=== PATIENT | female | born 1955 | race Hispanic/Latino ===

== ENCOUNTER 2024-01-04 11:10 | Emergency (ER) | payer OTHER ==
[2024-01-04] MEDS ORDERED: HYDROMORPHONE HCL 0.5 MG/0.5 ML INJ ONE (11:33)
[2024-01-04] MEDS ORDERED: MECLIZINE HCL 12.5 MG TAB ONE (11:33)
[2024-01-04] MEDS ORDERED: ONDANSETRON 4 MG/2 ML VIAL ONE (11:33)
[2024-01-04 11:56] LABS: Absolute Eosinophils 0.1 K/uL (0-0.5); Absolute Lymphocytes (CBC) 2.1 K/uL (0.7-4.9); Absolute Monocytes 0.6 K/uL (0.1-1.3); Absolute Neutrophil 4.3 K/uL (1.8-8.0); Basophils % 0.5 % (0-1.3); Eosinophils % 1.7 % (0-4.4); Hematocrit 40.6 % (36.0-45.0); Hemoglobin 13.4 g/dL (12.0-15.0); Lymphocytes % 29.7 % (15.3-44.8); MCH 28.9 pg (27.0-35.0); MCV 87.8 fL (80-100); Monocytes % 8.4 % (3.3-12.3); Neutrophils % 59.7 % (41.7-73.7); Platelets 239 thou/uL (152-406); RBC Red Blood Cell Count 4.63 M/uL (3.86-4.86); Red Cell Distribution Width 13.9 % (12.1-15.2)
[2024-01-04 12:02] LABS: PT Prothrombin Time 10.9 SECONDS (9.5-12.5); Protime INR 0.99
--- NOTE | 2024-01-04 12:05 | RAD REPORT ---
EXAM DESCRIPTION: CT - Head Brain Wo Cont - 01/04/2024 11:47 am CLINICAL HISTORY: Headache;Dizziness COMPARISON: No comparisons TECHNIQUE: Noncontrast head CT images were obtained without IV contrast. Multiplanar reformats were generated and reviewed. All CT scans are performed using dose optimization technique as appropriate and may include automated exposure control or mA/KV adjustment according to patient size. FINDINGS: No intracranial hemorrhage, mass, or edema. Midline structures are unremarkable. Normal ventricular caliber for age. Villar-white matter differentiation is preserved, without evidence of acute infarct. No abnormal extra- axial fluid collections. Mastoid air cells and visualized portions of the paranasal sinuses are clear. No acute bony findings. IMPRESSION: No evidence of an acute intracranial process.
[2024-01-04 12:19] LABS: ALT/SGPT 25 U/L (13-56); AST/SGOT 15 U/L (15-37); Albumin 3.6 g/dL (3.4-5.0); Albumin/Globulin Ratio 1.3 (1.1-1.8); Alkaline Phosphatase 117 U/L (45-117); Anion Gap 2.5 mEq/L (5.0-15.0); BUN Blood Urea Nitrogen 22 mg/dL (7-18); Bicarbonate 32 mEq/L (21-32); Bilirubin Direct < 0.1 mg/dL (0-0.2); Bilirubin Indirect, Calculated ND mg/dL (0.2-0.8); Bilirubin Total 0.2 mg/dL (0.2-1.0); Globulin 2.7 g/dL (2.3-3.5); Glomerular Filtration Rate 95 ml/min (=/>90); Glucose Level 85 mg/dL (74-106); Magnesium 2.4 mg/dL (1.6-2.4); Potassium 3.5 mEq/L (3.5-5.1); Protein, Total 6.3 g/dL (6.4-8.2); Sodium Level 141 mEq/L (136-145); Troponin High Sensitivity 3.4 pg/mL (<58.9)
--- NOTE | 2024-01-04 15:16 | RAD REPORT ---
EXAM DESCRIPTION: MRI - Brain Wo Cont - 01/04/2024 3:00 pm CLINICAL HISTORY: SYNCOPE Headache, drowsiness COMPARISON: Head Brain Wo Cont dated 01/04/2024 TECHNIQUE: Multi-sequence, multiplanar MR imaging of the brain was performed without contrast. FINDINGS: No intracranial hemorrhage, hydrocephalus or extra-axial fluid collections.Mild brain atro phy is noted. Several small T2/FLAIR hyperintensities are seen in the white matter in the periventric ular and left frontal lobe region, nonspecific. These are favored to represent sequela of chronic yolis rovascular ischemic changes. No edema or shift of midline structures. No findings to suspect brain ma ss. DWI is negative for acute CVA. Midline structures are normally formed. Mastoid air cells and paranasal sinuses are clear. IMPRESSION: Negative for acute CVA or other acute intracranial process. Small T2/FLAIR hyperintensities in the periventricular region and left frontal lobe are nonspecific. This may be related to chronic microvascular ischemia or underlying demyelinating condition. MRI brai n followup an 6 months would be suggested to monitor for progression.
--- NOTE | 2024-01-04 15:39 | RAD REPORT ---
EXAM DESCRIPTION: MRI - MRA Head Wo Cont - 01/04/2024 3:32 pm CLINICAL HISTORY: cva CVA COMPARISON: Brain Wo Cont dated 01/04/2024 FINDINGS: 3D noncontrast [id number] MR angiography of the [place] was performed. No evidence of large vessel occlusion. No aneurysm, flow-limiting stenosis or vascular malformation i s seen. Forward flow seen in codominant vertebral arteries. The visualized dural venous sinuses appear patent. IMPRESSION: No significant flow abnormality of the [place] is identified.
--- NOTE | 2024-01-04 15:41 | ER ---
Nurse's Notes [facility] Name: Lucila Valles Age: 68 yrs Sex: Female : 1955 Arrival Date: 01/04/2024 Time: 11:10 Bed 7 Private MD: Diagnosis: Dizziness, vertigo Presentation: 01/03 11:16 Chief complaint: Patient states: Generalized weakness, dizziness since Tuesday. Has nj1 taken meclizine, as well as antiemetics with no significant relief. Worse with movement. 11:16 Coronavirus screen: Vaccine status: Patient reports receiving the 2nd dose of the covid nj1 vaccine. Ebola Screen: Patient denies travel to an Ebola-affected area in the 21 days before illness onset. Initial Sepsis Screen: Does the patient meet any 2 criteria? No. Patient's initial sepsis screen is negative. Does the patient have a suspected source of infection? No. Patient's initial sepsis screen is negative. Risk Assessment: Do you want to hurt yourself or someone else? Patient reports no desire to harm self or others. Onset of symptoms was December 31, 2023. 11:16 Method Of Arrival: Wheelchair nj1 11:16 Acuity: BOOKER 3 nj1 Historical: - Allergies: 11:41 Burten; nj1 - PMHx: 11:36 Fibromyalgia; Sleep apnea; Depressive disorder; Hypercholesterolemia; Arthritis; nj1 - Immunization history:: Client reports receiving the 2nd dose of the Covid vaccine. - Infectious Disease History:: Denies. - Social history:: Smoking status: Patient/guardian denies using tobacco, but has a distant history of tobacco abuse. Screenin:45 [facility] ED Fall Risk Assessment (Adult) History of falling in the last 3 months, kc6 including since admission No falls in past 3 months (0 pts) Confusion or Disorientation No (0 pts) Intoxicated or Sedated No (0 pts) Impaired Gait No (0 pts) Mobility Assist Device Used No (0 pt) Altered Elimination No (0 pt) Score/Fall Risk Level 0 - 2 = Low Risk. Abuse screen: Denies threats or abuse. Denies injuries from another. Nutritional screening: No deficits noted. Tuberculosis screening: No symptoms or risk factors identified. Assessment: 11:40 General: Appears in no apparent distress. Behavior is calm, cooperative, appropriate ko1 for age. Pain: Denies pain. Neuro: Level of Consciousness is awake, alert, obeys commands, Oriented to person, place, time, situation, Reports dizziness, a syncopal episode. Cardiovascular: Rhythm is sinus rhythm. Respiratory: No deficits noted. GI: Reports nausea, vomiting. : No deficits noted. EENT: No deficits noted. Derm: No deficits noted. Musculoskeletal: No deficits noted. 12:40 Reassessment: Patient appears in no apparent distress at this time. No changes from [facility] previously documented assessment. Patient and/or family updated on plan of care and expected duration. Pain level reassessed. Patient is alert, oriented x 3, equal unlabored respirations, skin warm/dry/pink. 13:40 Reassessment: Patient appears in no apparent distress at this time. No changes from kc6 previously documented assessment. Patient and/or family updated on plan of care and expected duration. Pain level reassessed. Patient is alert, oriented x 3, equal unlabored respirations, skin warm/dry/pink. 14:40 Reassessment: Patient appears in no apparent distress at this time. No changes from kc previously documented assessment. Patient and/or family updated on plan of care and expected duration. Pain level reassessed. Patient is alert, oriented x 3, equal unlabored respirations, skin warm/dry/pink. 15:32 Reassessment: Patient appears in no apparent distress at this time. No changes from kc6 previously documented assessment. Patient and/or family updated on plan of care and expected duration. Pain level reassessed. Patient is alert, oriented x 3, equal unlabored respirations, skin warm/dry/pink. Vital Signs: 11:16 BP 135 / 87; Pulse 74; Resp 16; Temp 98.7(O); Pulse Ox 100% on R/A; Weight 70 kg; nj1 Height 5 ft. 2 in. ; Pain 7/10; 11:40 BP 129 / 78; Pulse 72; Resp 14; Pulse Ox 98% ; ko1 13:11 BP 144 / 91; Pulse 67; Resp 16 S; Pulse Ox 97% on R/A; kc6 14:35 BP 116 / 68; Pulse 84; Resp 16; Pulse Ox 99% ; ko1 11:16 Body Mass Index 28.04 (70.00 kg, 158 cm) [facility] 11:16 Pain Scale: Adult nj1 ED Course: 11:13 Patient arrived in ED. mg5 11:16 Tyler Davis MD is Attending Physician. sp3 11:32 Arti Ornelas, RN is Primary Nurse. ko1 11:36 Triage completed. nj1 11:37 Arm band placed on. nj1 11:40 Provided Education on: call light, meds, labs, tests. ko1 11:40 No provider procedures requiring assistance completed. Initial lab(s) drawn, by ED ko1 staff, sent to lab. EKG done, by ED staff, reviewed by Tyler Davis MD. 11:45 Patient has correct armband on for positive identification. Bed in low position. Call kc6 light in reach. Side rails up X2. Client placed on continuous cardiac and pulse oximetry monitoring. NIBP monitoring applied. monitor car operator on. Door closed. Noise minimized. Visitors limited. Lights dimmed. Pillow given. PO fluids given. 11:45 Inserted saline lock: 20 gauge in right antecubital area, using aseptic technique. kc6 Blood collected. 11:47 CT Head Brain wo Cont In Process Unspecified. EDMS 15:02 Brain Wo Cont In Process Unspecified. EDMS 15:34 MRA Head Wo Cont In Process Unspecified. EDMS 15:40 Nikki Dale MD is Referral Physician. sp3 15:43 IV discontinued, intact, bleeding controlled, No redness/swelling at site. Pressure ko1 dressing applied. Administered Medications: 11:45 Drug: HYDROmorphone IVP 0.5 mg IVP once Route: IVP; Site: right antecubital; kc6 12:36 Follow up: Response: No adverse reaction; Pain is decreased; RASS: Alert and Calm (0) kc6 11:45 Drug: Ondansetron IVP 4 mg IVP once; over 2 minutes Route: IVP; Site: right antecubital;kc6 12:36 Follow up: Response: No adverse reaction; Nausea is decreased kc6 11:45 Drug: Meclizine PO 25 mg PO once Route: PO; kc6 12:36 Follow up: Response: No adverse reaction kc6 Medication: 11:40 VIS not applicable for this client. ko1 Outcome: 15:41 Discharge ordered by . sp3 15:43 Discharged to home ambulatory, ko1 15:43 Condition: stable 15:43 Discharge instructions given to patient, family, Instructed on discharge instructions, follow up and referral plans. Demonstrated understanding of instructions, follow-up care, medications, 15:48 Patient left the ED. ko1 Signatures: Dispatcher [employer] EDMS Tyler Davis MD MD sp3 Mima Treadwell, RN RN kc6 Arti Ornelas RN RN ko1 Nydia Kent RN RN nj1 Marlena Montenegro 5
--- NOTE | 2024-01-04 15:42 | EDPHYS ---
Physician Documentation [facility] Name: Lucila Valles Age: 68 yrs Sex: Female : 1955 Arrival Date: 01/04/2024 Time: 11:10 Bed 7 Private MD: ED Physician Tyler Davis HPI: 01/03 12:08 This 68 yrs old Female presents to ER via Wheelchair with complaints of sp3 Syncope, Weakness, Vomiting, Dizziness. 12:08 68-year-old female with a history of fibromyalgia, depression, hyperlipidemia, sp3 arthritis presents to the ED with chief complaint vertigo, headache and nausea/vomiting. Patient was being treated by family member Dr. Hernandez cardiology attempted treatment with Walcott-Hallpike maneuvers and p.o. meclizine. This has not been helping significantly and therefore she presents to the ED for further investigation. No imaging or blood work has been performed. Patient denies any trauma, chest pain, shortness of breath, back pain, diarrhea, syncope, near syncope, rash, fever, URI symptoms, known sick contacts, or any other signs or symptoms on ROS at this time. Dizziness is described as room spinning and vertiginous as opposed to syncope or near syncope.. Historical: - Allergies: 11:41 Burten; nj1 - PMHx: 11:36 Fibromyalgia; Sleep apnea; Depressive disorder; Hypercholesterolemia; Arthritis; nj1 - Immunization history:: Client reports receiving the 2nd dose of the Covid vaccine. - Infectious Disease History:: Denies. - Social history:: Smoking status: Patient/guardian denies using tobacco, but has a distant history of tobacco abuse. ROS: 12:09 Constitutional: Negative for fever, chills, and weight loss, Eyes: Negative for injury, sp3 pain, redness, and discharge, ENT: Negative for injury, pain, and discharge, Neck: Negative for injury, pain, and swelling, Cardiovascular: Negative for chest pain, palpitations, and edema, Respiratory: Negative for shortness of breath, cough, wheezing, and pleuritic chest pain, Abdomen/GI: Negative for abdominal pain, nausea, vomiting, diarrhea, and constipation, Back: Negative for injury and pain, MS/Extremity: Negative for injury and deformity, Skin: Negative for injury, rash, and discoloration, Allergy/Immunology: Negative for hives, rash, and allergies, Endocrine: Negative for neck swelling, polydipsia, polyuria, polyphagia, and marked weight changes, Hematologic/Lymphatic: Negative for swollen nodes, abnormal bleeding, and unusual bruising, Exam: 12:10 Constitutional: This is a well developed, well nourished patient who is awake, alert, sp3 and in no acute distress. Head/Face: Normocephalic, atraumatic. Eyes: Pupils equal round and reactive to light, extra-ocular motions intact. Lids and lashes normal. Conjunctiva and sclera are non-icteric and not injected. Cornea within normal limits. Periorbital areas with no swelling, redness, or edema. ENT: Nares patent. No nasal discharge, no septal abnormalities noted. External auditory canals are clear. Oropharynx with no redness, swelling, or masses, exudates, or evidence of obstruction, uvula midline. Mucous membranes moist. Neck: Trachea midline, no thyromegaly or masses palpated, and no cervical lymphadenopathy. Supple, full range of motion without nuchal rigidity, or vertebral point tenderness. No Meningismus. Chest/axilla: Normal chest wall appearance and motion. Nontender with no deformity. No lesions are appreciated. Cardiovascular: Regular rate and rhythm with a normal S1 and S2. No gallops, murmurs, or rubs. Normal PMI, no JVD. No pulse deficits. Respiratory: Lungs have equal breath sounds bilaterally, clear to auscultation and percussion. No rales, rhonchi or wheezes noted. No increased work of breathing, no retractions or nasal flaring. Abdomen/GI: Soft, non-tender, with normal bowel sounds. No distension or tympany. No guarding or rebound. No evidence of tenderness throughout. Back: No spinal tenderness. No costovertebral tenderness. Full range of motion. Skin: Warm, dry with normal turgor. Normal color with no rashes, no lesions, and no evidence of cellulitis. MS/ Extremity: Pulses equal, no cyanosis. Neurovascular intact. Full, normal range of motion. Neuro: Awake and alert, GCS 15, oriented to person, place, time, and situation. Cranial nerves II-XII grossly intact. Motor strength 5/5 in all extremities. Sensory grossly intact. Cerebellar exam normal. Normal gait. Psych: Awake, alert, with orientation to person, place and time. Behavior, mood, and affect are within normal limits. 12:10 Neuro: Horizontal nystagmus noted. No vertical nystagmus or other neurological findings., Vital Signs: 11:16 BP 135 / 87; Pulse 74; Resp 16; Temp 98.7(O); Pulse Ox 100% on R/A; Weight 70 kg; nj1 Height 5 ft. 2 in. ; Pain 7/10; 11:40 BP 129 / 78; Pulse 72; Resp 14; Pulse Ox 98% ; ko1 13:11 BP 144 / 91; Pulse 67; Resp 16 S; Pulse Ox 97% on R/A; kc6 14:35 BP 116 / 68; Pulse 84; Resp 16; Pulse Ox 99% ; ko1 11:16 Body Mass Index 28.04 (70.00 kg, 158 cm) nj1 11:16 Pain Scale: Adult nj1 MDM: 11:30 Patient medically screened. sp3 12:10 Data reviewed: vital signs, nurses notes, lab test result(s), EKG, radiologic studies, sp3 I have discussed the patient's presentation/case with the attending Emergency Department Physician;. ED course: 68-year-old female with PMH above now with headache and dizziness and nausea. Differential diagnosis includes migraine headache, other headache, ICH, mass effect, benign positional vertigo, labyrinthitis, ACS, among others. I am not highly suspicious for critical pathology, sepsis, shock, acute [place], TIA/CVA, or any other concerning pathology. EKG demonstrates right bundle branch block with nonspecific diffuse ST's ST changes without evidence of acute ischemia. CT scan of the head is negative and lab work is pending. Meclizine p.o., Zofran IV and Dilaudid IV have been administered. Disposition pending workup and patient course.. 13:06 ED course: Full workup negative. Patient feeling mildly better. I spoken to Dr. Hernandez sp3 her family member and nylon mender. We will like to get MRI of the brain prior to discharge.. 15:40 ED course: Dr. Hernandez came over after reviewing MRI and discussing with radiology. No sp3 significant findings are present. We will follow-up on read as well and discharge patient home at this time.. 01/03 11:30 Order name: Basic Metabolic Panel; Complete Time: 12:21 sp3 01/03 11:30 Order name: CBC with Diff; Complete Time: 12:08 sp3 01/03 11:30 Order name: LFT's; Complete Time: 12:21 sp3 01/03 11:30 Order name: Magnesium; Complete Time: 12:21 sp3 01/03 11:30 Order name: PT-INR; Complete Time: 12:08 sp3 01/03 11:30 Order name: Troponin HS; Complete Time: 12:21 sp3 01/03 11:30 Order name: CT Head Brain wo Cont; Complete Time: 12:08 sp3 01/03 14:11 Order name: Brain Wo Cont; Complete Time: 15:41 EDMS 01/03 15:01 Order name: MRA Head Wo Cont; Complete Time: 15:41 EDMS 01/03 11:30 Order name: EKG - Nurse/Tech; Complete Time: 11:36 sp3 01/03 11:30 Order name: IV Saline Lock; Complete Time: 11:45 sp3 01/03 11:30 Order name: Labs collected and sent; Complete Time: 11:45 sp3 Administered Medications: 11:45 Drug: HYDROmorphone IVP 0.5 mg IVP once Route: IVP; Site: right antecubital; kc6 12:36 Follow up: Response: No adverse reaction; Pain is decreased; RASS: Alert and Calm (0) kc6 11:45 Drug: Ondansetron IVP 4 mg IVP once; over 2 minutes Route: IVP; Site: right antecubital;kc6 12:36 Follow up: Response: No adverse reaction; Nausea is decreased kc6 11:45 Drug: Meclizine PO 25 mg PO once Route: PO; kc6 12:36 Follow up: Response: No adverse reaction kc6 Disposition Summary: 01/04/24 15:41 Discharge Ordered Notes: Location: Home sp3 Condition: Stable sp3 Diagnosis - Dizziness, vertigo sp3 Followup: sp3 - With: Private Physician - When: Upon discharge from the Emergency Department - Reason: Continuance of care Followup: sp3 - With: Nikki Dale MD - When: Upon discharge from the Emergency Department - Reason: Recheck today's complaints Discharge Instructions: - Discharge Summary Sheet sp3 - Nonspecific Chest Pain, Adult sp3 - Dizziness sp3 Forms: - Medication Reconciliation Form sp3 - Antibiotic Education sp3 - Prescription Opioid Use sp3 - Patient Portal Instructions sp3 - Leadership Thank You Letter sp3 Signatures: Dispatcher [employer] EDMS Tyler Davis MD MD sp3 Mima Treadwell RN RN kc6 Nydia Kent RN RN nj1 Corrections: (The following items were deleted from the chart) 11:30 11:30 Head Brain Wo Cont+CT.RAD.BRZ ordered. EDMS EDMS 11:30 11:30 BASIC METABOLIC PANEL+C.LAB.BRZ ordered. EDMS EDMS 11:30 11:30 CBC+H.LAB.BRZ ordered. EDMS EDMS 11:30 11:30 HEPATIC FUNCTION+C.LAB.BRZ ordered. EDMS EDMS 11:30 11:30 MAGNESIUM+C.LAB.BRZ ordered. EDMS EDMS 11:30 11:30 PROTIME (+INR)+COAG.LAB.BRZ ordered. EDMS EDMS 11:30 11:30 Troponin High Sensitivity+C.LAB.BRZ ordered. EDMS EDMS 12:10 12:08 68-year-old female with a history of fibromyalgia, depression, hyperlipidemia, sp3 arthritis presents to the ED with chief complaint vertigo, headache and nausea/vomiting. Patient was being treated by family member Dr. Hernandez cardiology attempted treatment with Walcott-Hallpike maneuvers and p.o. meclizine. This has not been helping significantly and therefore she presents to the ED for further investigation. No imaging or blood work has been performed. Patient denies any trauma, chest pain, shortness of breath, back pain, diarrhea, syncope, near syncope, rash, fever, URI symptoms, known sick contacts, or any other signs or symptoms on ROS at this time.. sp3 14:11 12:38 Brain W/Wo Cont+MRI.RAD.BRZ ordered. EDMS EDMS
[2024-01-04 16:21] VITALS: BP 116/68; TEMP 98.7; O2SAT 99
--- NOTE | 2024-01-06 14:42 | EKG ---
Test Date: 2024-01-04 Test Time: 11:33:33 Pattern Puncher: SAJAN MEASUREMENT RESULTS: Intervals: Rate: 67 WI: 164 QRSD: 124 QT: 398 QTc: 420 [place]: P: 66 WI: 164 QRS: 84 T: 64 INTERPRETIVE STATEMENTS: Normal sinus rhythm Right bundle branch block Abnormal ECG No previous ECG available for comparison Electronically Signed On 01-06-24 14:38:53 CDT by Sebastian Hernandez
== END 2024-01-04 15:48 | disposition home or self-care (01) ==
LOC: ER 11:10
DX: R42 Dizziness and giddiness (principal); R51.9 Headache, unspecified; R11.2 Nausea with vomiting, unspecified; Z88.8 Allergy status to other drugs, medicaments and biological substances
CPT/HCPCS: 85025; 80048; 36415; 83735; 85610; 80076; 84484; 70450; 70551; 70544; J8597; J1170; J2405; 93005; 96374; 96375; 99285